=== PATIENT | male | born 1975 | race Caucasian/White ===

== ENCOUNTER 2016-09-03 18:13 | Emergency (ER) | payer OTHER ==
[~2016-09-03] VITALS: Ht 170.2 cm; Wt 72.6 kg
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
[2016-09-03] MEDS ORDERED: NAPROSYN500 M1 PO (19:30)
[2016-09-03] MEDS ORDERED: CYCLOBENZAPRINE5 M2 PO (19:30)
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
[2016-09-03 19:48] VITALS: BP 124/74
== END 2016-09-03 19:49 ==
LOC: ERH 18:13
DX: M54.2 Cervicalgia (principal); M25.512 Pain in left shoulder; V89.2XXA Person injured in unspecified motor-vehicle accident, traffic, initial encounter; Y93.9 Activity, unspecified; Y92.488 Other paved roadways as the place of occurrence of the external cause
CPT/HCPCS: 73030-LT